=== PATIENT | female | born 1945 | race Caucasian/White ===

== ENCOUNTER 2017-11-16 15:42 | Inpatient (IN) | payer MEDICARE, OTHER ==
[~2017-11-16] VITALS: Ht 172.7 cm; Wt 56.4 kg
[2017-11-16 17:49] LABS: Red Cell Distribution Width 15.9 % (11.8-14.3)
[2017-11-16] MEDS ORDERED: AZITHROMYCIN 500MG/ 250ML 250 ML IV ONE (18:00)
[2017-11-16] MEDS ORDERED: cefTRIAXone 1GM/10ml IVPUSH 10 ML IV ONE (18:00)
[2017-11-16 18:04] LABS: White Blood Cell 25.8 10^3/uL (4.4-10.8)
[2017-11-16 18:05] LABS: Hematocrit 36.5 % (36.0-46.0); Hemoglobin 13.4 g/dL (12.2-16.2); Mean Corpuscular Hgb Conc. 36.8 g/dL (32.0-36.0); Mean Corpuscular Volume 106.1 fL (80.0-100.0); Platelet Count (auto) 277 10^3/uL (140-450); Red Blood Cells 3.44 10^6/uL (4.0-5.20)
[2017-11-16 18:06] LABS: Basophils % (manual) 0 (0.0-2.0); Blast Cells 0; Eosinophils % (manual) 0 (0-7); Metamyelocytes % 0; Myelocytes % 0; Promyelocytes % 0; Reactive Lymphocytes 0
[2017-11-16 18:23] LABS: BUN/Creatinine Ratio 57.6; Bilirubin, Total 1.7 mg/dL (0.2-1.0); Calcium 8.7 mg/dL (8.5-10.1); Potassium 4.6 mmol/L (3.5-5.1); Total Protein 7.8 g/dL (6.4-8.2)
[2017-11-16] MEDS ORDERED: SODIUM CHLORIDE 0.9% 1,000 ML IV ONE ×4 (18:31→21:15)
[2017-11-16 18:36] LABS: Albumin 2.2 g/dL (3.4-5.0)
[2017-11-16 19:10] LABS: Urine Bacteria FEW /hpf (None Seen); Urine Blood TRACE /uL (Negative); Urine Specific Gravity 1.025 (1.001-1.035); Urine WBC 1 /hpf (0 - 5)
[2017-11-16 19:12] LABS: Lactic Acid w/Reflex 3.4 mmol/L (0.4-2.0)
[2017-11-16 19:33] LABS: Band Neutrophils % (manual) 8; Lymphocytes % (manual) 2 (10.0-50.0); Monocytes % (manual) 7 (0-12)
[2017-11-16] MEDS ORDERED: MORPHINE SULFATE 4 MG/ML SYR/VIAL IV ONE (20:30)
[2017-11-16] MEDS ORDERED: ONDANSETRON HCL 4 MG/2 ML VIAL IV ONE (20:30)
[2017-11-16] MEDS ORDERED: MORPHINE SULFATE INJECTION 1 ML ONE (20:54)
[2017-11-16] MEDS ORDERED: METOPROLOL TARTRATE 25 MG TAB PO ONE (21:15)
[2017-11-16] MEDS ORDERED: VANCOMYCIN PER PHARMACY 0 MG IV SCH (22:00)
[2017-11-16] MEDS ORDERED: ONDANSETRON HCL 4 MG/2 ML VIAL IV PRN (22:15)
[2017-11-16] MEDS ORDERED: AMIODARONE HCL 150 MG in D5W 5% 100 ML IV ONE (22:15)
[2017-11-16] MEDS ORDERED: VANCOMYCIN 1GM/250ML 250 ML IV ONE (22:15)
[2017-11-16] MEDS ORDERED: ACETAMINOPHEN 500 MG TAB PO PRN (22:15)
[2017-11-16] MEDS ORDERED: AMIODARONE HCL 900 MG in DEXTROSE 500 ML IV SCH (22:16)
[2017-11-16] MEDS ORDERED: AMIODARONE HCL (50 MG/ ML) 3 ML VIAL IV ONE ×5 (22:27→22:33)
[2017-11-17] MEDS ORDERED: FUROSEMIDE 20 MG/2 ML VIAL IV ONE (00:15)
[2017-11-17] MEDS: HYDROcodone-ACET 5/325MG TAB PO PRN ×4 (01:01→20:02)
[2017-11-17] MEDS ORDERED: DIGOXIN (250MCG/ML) 2 ML AMPULE IV ONE (01:30)
[2017-11-17] MEDS ORDERED: LORazepam 2MG/ML-1ML VIAL IV PRN (01:45)
[2017-11-17] MEDS: AMIODARONE HCL 900 MG in DEXTROSE 500 ML IV SCH (04:19)
[2017-11-17] MEDS ORDERED: traMADol HCL 50 MG TAB PO ONE (04:30)
[2017-11-17] MEDS: PIPERACILLIN-TAZOB 3.375GM 50 ML IV SCH ×5 (06:20→23:01)
[2017-11-17 06:25] LABS: Basophils # (auto) 0 uL; Basophils % (auto) 0.1 % (0.0-2.0); Eosinophils # (auto) 0 uL; Eosinophils % (auto) 0.1 % (0.0-7.0); Hematocrit 35.5 % (36.0-46.0); Hemoglobin 11.8 g/dL (12.2-16.2); Lymphocytes # (auto) 0.5 uL; Lymphocytes % (auto) 1.6 % (10.0-50.0); Mean Corpuscular Hemoglobin 32.8 pg (28.0-32.0); Mean Corpuscular Hgb Conc. 33.3 g/dL (32.0-36.0); Mean Corpuscular Volume 98.4 fL (80.0-100.0); Monocytes # (auto) 0.9 uL; Monocytes % (auto) 3.2 % (0.0-12.0); Neutrophils # (auto) 27.7 uL; Platelet Count (auto) 246 10^3/uL (140-450); Red Blood Cells 3.61 10^6/uL (4.0-5.20); Red Cell Distribution Width 15.5 % (11.8-14.3); White Blood Cell 29.1 10^3/uL (4.4-10.8)
[2017-11-17 06:50] LABS: Albumin 1.8 g/dL (3.4-5.0); BUN/Creatinine Ratio 52.7; Bilirubin, Total 1.4 mg/dL (0.2-1.0); Calcium 8.4 mg/dL (8.5-10.1); Magnesium 2.3 mg/dL (1.6-2.6); Phosphorus 2.8 mg/dL (2.5-4.90); Potassium 4.1 mmol/L (3.5-5.1); Pre Albumin 3.2 mg/dL (20.0-40.0)
[2017-11-17] MEDS ORDERED: ENOXAPARIN SOD 40 MG/0.4 ML SYRINGE SC ONE (10:30)
[2017-11-17] MEDS ORDERED: AZITHROMYCIN 500MG/ 250ML 250 ML IV ONE (10:30)
[2017-11-17] MEDS: CARVEDILOL 3.125 MG TAB PO ONE ×2 (10:39→11:05)
[2017-11-17 10:51] LABS: INR 0.95 (0.9-1.15); Partial Thromboplastin Time 29.3 sec (22.64-33.71); Prothrombin Time 10.4 sec (9.37-12.3)
[2017-11-17 11:30] VITALS: BP 112/77
[2017-11-17] MEDS ORDERED: ZOLPIDEM TARTRATE 5 MG TAB PO PRN (11:45)
[2017-11-17] MEDS: BOOST 8 ounces PO SCH ×4 (12:00→22:15)
[2017-11-17] MEDS: VANCOMYCIN 500 MG in D5W 5% 100 ML IV SCH (12:51)
[2017-11-17] MEDS ORDERED: TRAM50TA2 PO (15:32)
[2017-11-17] MEDS ORDERED: ESTR1TAB3 IM (15:32)
[2017-11-17] MEDS ORDERED: HYDR-4683 PO (15:32)
[2017-11-17] MEDS ORDERED: FLEET ENEMA(ADULT) 135 ML PR PRN (15:45)
[2017-11-17 16:00] VITALS: BP 117/66
[2017-11-17] MEDS: traMADol HCL 50 MG TAB PO PRN (17:25)
[2017-11-17] MEDS: LORazepam 2MG/ML-1ML VIAL IV PRN (20:02)
[2017-11-17] MEDS: CARVEDILOL 3.125 MG TAB PO SCH (22:00)
[2017-11-17] MEDS: ENOXAPARIN SOD 40 MG/0.4 ML SYRINGE SC SCH (22:15)
[2017-11-18] MEDS: VANCOMYCIN 500 MG in D5W 5% 100 ML IV SCH ×2 (00:06→12:45)
[2017-11-18] MEDS: HYDROcodone-ACET 5/325MG TAB PO PRN ×5 (00:34→15:10)
[2017-11-18] MEDS: AMIODARONE HCL 900 MG in DEXTROSE 500 ML IV SCH (04:19)
[2017-11-18 05:42] LABS: Eosinophils # (auto) 0 uL; Hemoglobin 12.3 g/dL (12.2-16.2); Mean Corpuscular Hgb Conc. 32.9 g/dL (32.0-36.0); Monocytes # (auto) 0.3 uL; Monocytes % (auto) 0.8 % (0.0-12.0)
[2017-11-18 05:45] LABS: Basophils # (auto) 0 uL; Basophils % (auto) 0.1 % (0.0-2.0); Hematocrit 37.3 % (36.0-46.0); Lymphocytes # (auto) 0.8 uL; Lymphocytes % (auto) 2.6 % (10.0-50.0); Mean Corpuscular Hemoglobin 31.5 pg (28.0-32.0); Mean Corpuscular Volume 95.5 fL (80.0-100.0); Neutrophils # (auto) 30.9 uL; Neutrophils % (auto) 96.5 % (37.0-80.0); Platelet Count (auto) 267 10^3/uL (140-450); Red Cell Distribution Width 15.3 % (11.8-14.3)
[2017-11-18] MEDS: PIPERACILLIN-TAZOB 3.375GM 50 ML IV SCH ×3 (05:57→18:00)
[2017-11-18] MEDS: BOOST 8 ounces PO SCH ×3 (06:08→18:11)
[2017-11-18 06:10] LABS: Albumin 1.4 g/dL (3.4-5.0); Calcium 8.2 mg/dL (8.5-10.1); Potassium 4.1 mmol/L (3.5-5.1); Total Protein 6.1 g/dL (6.4-8.2)
[2017-11-18] MEDS: traMADol HCL 50 MG TAB PO PRN ×3 (08:29→18:00)
[2017-11-18] MEDS ORDERED: AZITHROMYCIN 500MG/ 250ML 250 ML IV SCH (10:00)
[2017-11-18] MEDS: CARVEDILOL 3.125 MG TAB PO SCH (11:14)
[2017-11-18] MEDS: ENOXAPARIN SOD 40 MG/0.4 ML SYRINGE SC SCH (11:14)
[2017-11-18] MEDS: LORazepam 2MG/ML-1ML VIAL IV PRN (12:11)
[2017-11-18] MEDS ORDERED: SOTALOL HCL 80 MG TAB PO ONE (14:30)
[2017-11-18] MEDS ORDERED: PANTOPRAZOLE 40 MG TAB PO ONE (16:15)
[2017-11-18] MEDS: guaiFENesin 200 MG/10 ML UD PO SCH (18:01)
[2017-11-19] MEDS: SOTALOL HCL 80 MG TAB PO SCH ×3 (00:24→22:10)
[2017-11-19] MEDS: BOOST 8 ounces PO SCH ×5 (00:27→22:18)
[2017-11-19] MEDS: ENOXAPARIN SOD 40 MG/0.4 ML SYRINGE SC SCH ×3 (00:27→22:09)
[2017-11-19] MEDS: VANCOMYCIN 500 MG in D5W 5% 100 ML IV SCH ×3 (00:29→23:59)
[2017-11-19] MEDS: LORazepam 2MG/ML-1ML VIAL IV PRN (01:12)
[2017-11-19] MEDS: guaiFENesin 200 MG/10 ML UD PO SCH ×4 (01:21→18:00)
[2017-11-19 03:40] VITALS: BP 121/68
[2017-11-19] MEDS: PIPERACILLIN-TAZOB 3.375GM 50 ML IV SCH ×4 (04:06→18:00)
[2017-11-19] MEDS: traMADol HCL 50 MG TAB PO PRN ×4 (04:08→22:09)
[2017-11-19 05:18] LABS: Hematocrit 33.9 % (36.0-46.0); Red Cell Distribution Width 15.7 % (11.8-14.3)
[2017-11-19 05:20] LABS: Hemoglobin 12.1 g/dL (12.2-16.2); Mean Corpuscular Hemoglobin 37.7 pg (28.0-32.0); Mean Corpuscular Hgb Conc. 35.8 g/dL (32.0-36.0); Mean Corpuscular Volume 105.3 fL (80.0-100.0); Platelet Count (auto) 292 10^3/uL (140-450); Red Blood Cells 3.22 10^6/uL (4.0-5.20)
[2017-11-19 05:31] LABS: Blast Cells 0; Myelocytes % 0; Reactive Lymphocytes 0
[2017-11-19 05:33] LABS: BUN/Creatinine Ratio 51.1; Potassium 4.3 mmol/L (3.5-5.1)
[2017-11-19] MEDS: HYDROcodone-ACET 5/325MG TAB PO PRN ×4 (05:43→22:09)
[2017-11-19 08:00] VITALS: BP 139/73
[2017-11-19] MEDS: PANTOPRAZOLE 40 MG TAB PO SCH (09:38)
[2017-11-19] MEDS ORDERED: PPN PER PHARMACY 0 ML IV SCH (11:00)
[2017-11-19 11:19] LABS: Magnesium 2.4 mg/dL (1.6-2.6); Phosphorus 2.2 mg/dL (2.5-4.90)
[2017-11-19 11:20] LABS: Folate (Folic Acid) 7.2 ng/mL (5.38-24)
[2017-11-19 11:22] LABS: Pre Albumin 5.8 mg/dL (20.0-40.0)
[2017-11-19 12:00] VITALS: BP 146/82
[2017-11-19 12:00] LABS: Lymphocytes % (manual) 2 (10.0-50.0); Monocytes % (manual) 2 (0-12)
[2017-11-19 12:01] LABS: Metamyelocytes % 2
[2017-11-19] MEDS ORDERED: SODIUM PHOSP 20MEQ(15MMOL) IN NS 100 ML IV ONE (12:45)
[2017-11-19] MEDS ORDERED: DEXTROSE (50%) 50ML SYRG IV SCH (12:45)
[2017-11-19 12:52] LABS: Band Neutrophils % (manual) 0; Basophils % (manual) 0 (0.0-2.0); Eosinophils % (manual) 0 (0-7); Promyelocytes % 0
[2017-11-19] MEDS ORDERED: HYDROmorphone HCL 2 MG/ML VL ONE (14:04)
[2017-11-19] MEDS ORDERED: HYDROmorphone HCL 2 MG/ML VL IV ONE (14:15)
[2017-11-19] MEDS ORDERED: ATROPINE SULF 0.5 MG/5ML SYR ONE (15:00)
[2017-11-19] MEDS ORDERED: EPINEPHrine HCL 1 MG/10 ML SYRG ONE (15:00)
[2017-11-19] MEDS ORDERED: MIDAZOLAM HCL 1MG/1ML-2 ML VIAL ONE (15:40)
[2017-11-19] MEDS ORDERED: fentaNYL CITRATE 100 MCG/2 ML VL ONE (15:41)
[2017-11-19 16:00] VITALS: BP 123/64
[2017-11-19] MEDS: ACCU-CHEK COMFORT CURVE STRIP VI SCH (18:00)
[2017-11-19] MEDS: InsuLIN REG 1unit/0.01ml Soln (100units/ml) SC SCH (18:00)
[2017-11-19 19:50] VITALS: BP 131/71
[2017-11-19] MEDS ORDERED: PPN PER PHARMACY IV NR ×10 (20:00)
[2017-11-19] MEDS: ZOLPIDEM TARTRATE 5 MG TAB PO PRN (22:10)
[2017-11-20] VITALS (8 sets, daily range): BP systolic 125–151; BP diastolic 69–94
[2017-11-20] MEDS: InsuLIN REG 1unit/0.01ml Soln (100units/ml) SC SCH ×5 (00:26→23:44)
[2017-11-20] MEDS: ACCU-CHEK COMFORT CURVE STRIP VI SCH ×5 (00:26→23:44)
[2017-11-20] MEDS: guaiFENesin 200 MG/10 ML UD PO SCH ×5 (01:19→23:44)
[2017-11-20] MEDS: PIPERACILLIN-TAZOB 3.375GM 50 ML IV SCH ×3 (01:19→11:11)
[2017-11-20] MEDS: traMADol HCL 50 MG TAB PO PRN ×4 (03:19→20:39)
[2017-11-20] MEDS: HYDROcodone-ACET 5/325MG TAB PO PRN ×5 (03:19→23:44)
[2017-11-20] MEDS: LORazepam 2MG/ML-1ML VIAL IV PRN ×2 (04:49→20:59)
[2017-11-20] MEDS: BOOST 8 ounces PO SCH ×4 (06:00→21:59)
[2017-11-20] MEDS: SOTALOL HCL 80 MG TAB PO SCH ×2 (09:56→21:59)
[2017-11-20] MEDS: PANTOPRAZOLE 40 MG TAB PO SCH (09:56)
[2017-11-20] MEDS: ENOXAPARIN SOD 40 MG/0.4 ML SYRINGE SC SCH ×2 (09:56→21:59)
[2017-11-20 10:11] LABS: Albumin 1.4 g/dL (3.4-5.0); Bilirubin, Total 0.8 mg/dL (0.2-1.0); Calcium 7.7 mg/dL (8.5-10.1); Magnesium 2.4 mg/dL (1.6-2.6); Phosphorus 3.7 mg/dL (2.5-4.90); Potassium 3.9 mmol/L (3.5-5.1); Pre Albumin 7.9 mg/dL (20.0-40.0); Total Protein 6.7 g/dL (6.4-8.2)
[2017-11-20 10:31] LABS: Hematocrit 38.1 % (36.0-46.0); Hemoglobin 12.9 g/dL (12.2-16.2); Mean Corpuscular Hemoglobin 34.6 pg (28.0-32.0); Platelet Count (auto) 330 10^3/uL (140-450); Red Blood Cells 3.74 10^6/uL (4.0-5.20); Red Cell Distribution Width 15.7 % (11.8-14.3); White Blood Cell 28.3 10^3/uL (4.4-10.8)
[2017-11-20 10:34] LABS: Basophils % (manual) 0 (0.0-2.0); Blast Cells 0; Metamyelocytes % 0; Myelocytes % 0; Promyelocytes % 0; Reactive Lymphocytes 0
[2017-11-20] MEDS: LINEZOLID 600MG/300ML 300 ML IV SCH ×2 (13:00→21:57)
[2017-11-20 14:25] LABS: Band Neutrophils % (manual) 4; Eosinophils % (manual) 1 (0-7); Lymphocytes % (manual) 3 (10.0-50.0); Monocytes % (manual) 5 (0-12)
[2017-11-20] MEDS ORDERED: PPN PER PHARMACY IV NR ×9 (20:00)
[2017-11-21] VITALS (7 sets, daily range): BP systolic 140–159; BP diastolic 75–94
[2017-11-21] MEDS: traMADol HCL 50 MG TAB PO PRN ×5 (01:45→19:51)
[2017-11-21] MEDS: HYDROcodone-ACET 5/325MG TAB PO PRN ×4 (04:32→17:30)
[2017-11-21] MEDS: InsuLIN REG 1unit/0.01ml Soln (100units/ml) SC SCH ×3 (06:00→18:00)
[2017-11-21 06:06] LABS: Hematocrit 35.4 % (36.0-46.0); Hemoglobin 11.5 g/dL (12.2-16.2); Mean Corpuscular Hemoglobin 30.4 pg (28.0-32.0); Mean Corpuscular Hgb Conc. 32.4 g/dL (32.0-36.0); Mean Corpuscular Volume 93.7 fL (80.0-100.0); Platelet Count (auto) 338 10^3/uL (140-450); Red Blood Cells 3.77 10^6/uL (4.0-5.20); Red Cell Distribution Width 14.8 % (11.8-14.3); White Blood Cell 21.7 10^3/uL (4.4-10.8)
[2017-11-21] MEDS: guaiFENesin 200 MG/10 ML UD PO SCH ×3 (06:17→18:09)
[2017-11-21] MEDS: ACCU-CHEK COMFORT CURVE STRIP VI SCH ×3 (06:18→18:09)
[2017-11-21] MEDS: LORazepam 2MG/ML-1ML VIAL IV PRN ×2 (06:18→15:30)
[2017-11-21] MEDS: BOOST 8 ounces PO SCH ×4 (06:19→22:04)
[2017-11-21 06:22] LABS: Basophils % (manual) 0 (0.0-2.0); Blast Cells 0; Eosinophils % (manual) 0 (0-7); Metamyelocytes % 0; Myelocytes % 0; Promyelocytes % 0; Reactive Lymphocytes 0
[2017-11-21 06:30] LABS: Albumin 1.3 g/dL (3.4-5.0); BUN/Creatinine Ratio 40.5; Bilirubin, Total 0.4 mg/dL (0.2-1.0); Calcium 7.6 mg/dL (8.5-10.1); Magnesium 2.1 mg/dL (1.6-2.6); Phosphorus 2.6 mg/dL (2.5-4.90); Potassium 3.8 mmol/L (3.5-5.1); Total Protein 6.4 g/dL (6.4-8.2)
[2017-11-21 06:55] LABS: Band Neutrophils % (manual) 1; Lymphocytes % (manual) 4 (10.0-50.0); Monocytes % (manual) 3 (0-12)
[2017-11-21] MEDS: cefTRIAXone 1GM/10ml IVPUSH 10 ML IV SCH (08:49)
[2017-11-21] MEDS: LINEZOLID 600MG/300ML 300 ML IV SCH ×2 (09:43→22:03)
[2017-11-21] MEDS: SOTALOL HCL 80 MG TAB PO SCH ×2 (09:44→22:04)
[2017-11-21] MEDS: PANTOPRAZOLE 40 MG TAB PO SCH (09:44)
[2017-11-21] MEDS: ENOXAPARIN SOD 40 MG/0.4 ML SYRINGE SC SCH ×2 (09:45→22:04)
[2017-11-21] MEDS ORDERED: ASPirin 81 mg TAB PO ONE (13:00)
[2017-11-21] MEDS ORDERED: PPN PER PHARMACY IV NR ×11 (20:00)
[2017-11-21] MEDS: ZOLPIDEM TARTRATE 5 MG TAB PO PRN (20:57)
[2017-11-22] VITALS (7 sets, daily range): BP systolic 132–161; BP diastolic 65–96
[2017-11-22] MEDS: ACCU-CHEK COMFORT CURVE STRIP VI SCH ×5 (00:02→23:57)
[2017-11-22] MEDS: guaiFENesin 200 MG/10 ML UD PO SCH ×5 (00:02→23:57)
[2017-11-22] MEDS: HYDROcodone-ACET 5/325MG TAB PO PRN ×5 (00:03→23:57)
[2017-11-22] MEDS: LORazepam 2MG/ML-1ML VIAL IV PRN ×3 (02:24→21:17)
[2017-11-22] MEDS: traMADol HCL 50 MG TAB PO PRN ×4 (05:08→21:08)
[2017-11-22] MEDS: BOOST 8 ounces PO SCH ×4 (06:00→21:18)
[2017-11-22] MEDS: InsuLIN REG 1unit/0.01ml Soln (100units/ml) SC SCH ×5 (06:00→23:57)
[2017-11-22 06:42] LABS: Albumin 1.4 g/dL (3.4-5.0); BUN/Creatinine Ratio 28.9; Bilirubin, Total 0.6 mg/dL (0.2-1.0); Calcium 7.7 mg/dL (8.5-10.1); Magnesium 2.1 mg/dL (1.6-2.6); Phosphorus 2.5 mg/dL (2.5-4.90); Potassium 3.6 mmol/L (3.5-5.1); Total Protein 7.2 g/dL (6.4-8.2)
[2017-11-22 07:43] LABS: Hematocrit 34.9 % (36.0-46.0); Hemoglobin 11.8 g/dL (12.2-16.2); Mean Corpuscular Hgb Conc. 33.8 g/dL (32.0-36.0); Mean Corpuscular Volume 91.7 fL (80.0-100.0); Platelet Count (auto) 407 10^3/uL (140-450); Red Blood Cells 3.81 10^6/uL (4.0-5.20); Red Cell Distribution Width 14.8 % (11.8-14.3); White Blood Cell 22.6 10^3/uL (4.4-10.8)
[2017-11-22 07:48] LABS: Basophils % (manual) 0 (0.0-2.0); Blast Cells 0; Metamyelocytes % 0; Myelocytes % 0; Promyelocytes % 0; Reactive Lymphocytes 0
[2017-11-22] MEDS: cefTRIAXone 1GM/10ml IVPUSH 10 ML IV SCH (08:26)
[2017-11-22 08:31] LABS: Band Neutrophils % (manual) 4; Eosinophils % (manual) 1 (0-7); Lymphocytes % (manual) 2 (10.0-50.0); Monocytes % (manual) 3 (0-12)
[2017-11-22] MEDS: SOTALOL HCL 80 MG TAB PO SCH ×2 (10:30→21:07)
[2017-11-22] MEDS: ASPirin 81 mg TAB PO SCH (10:31)
[2017-11-22] MEDS: PANTOPRAZOLE 40 MG TAB PO SCH (10:32)
[2017-11-22] MEDS: ENOXAPARIN SOD 40 MG/0.4 ML SYRINGE SC SCH ×2 (10:32→21:04)
[2017-11-22] MEDS: LINEZOLID 600MG/300ML 300 ML IV SCH ×2 (10:33→21:44)
[2017-11-22] MEDS ORDERED: PPN PER PHARMACY IV NR ×12 (20:00)
[2017-11-23] VITALS (8 sets, daily range): BP systolic 133–163; BP diastolic 52–99
[2017-11-23] MEDS: traMADol HCL 50 MG TAB PO PRN ×5 (01:01→20:22)
[2017-11-23] MEDS: ZOLPIDEM TARTRATE 5 MG TAB PO PRN ×2 (01:25→23:28)
[2017-11-23] MEDS ORDERED: ALBUTEROL SULF 2.5 MG/0.5ML(0.5%) NEB SOLN NEB ONE (02:45)
[2017-11-23] MEDS ORDERED: IPRATROPIUM BROM 0.5 MG/2.5ML INH SOL NEB ONE (02:45)
[2017-11-23] MEDS ORDERED: LORazepam 2MG/ML-1ML VIAL IV ONE (02:45)
[2017-11-23 05:49] LABS: Basophils # (auto) 0 uL; Basophils % (auto) 0.1 % (0.0-2.0); Eosinophils # (auto) 0 uL; Eosinophils % (auto) 0.1 % (0.0-7.0); Hematocrit 30.8 % (36.0-46.0); Hemoglobin 10.3 g/dL (12.2-16.2); Lymphocytes # (auto) 0.7 uL; Lymphocytes % (auto) 3.4 % (10.0-50.0); Mean Corpuscular Hemoglobin 30.9 pg (28.0-32.0); Mean Corpuscular Hgb Conc. 33.4 g/dL (32.0-36.0); Mean Corpuscular Volume 92.5 fL (80.0-100.0); Monocytes # (auto) 0.8 uL; Monocytes % (auto) 3.8 % (0.0-12.0); Neutrophils % (auto) 92.6 % (37.0-80.0); Platelet Count (auto) 314 10^3/uL (140-450); Red Blood Cells 3.33 10^6/uL (4.0-5.20); Red Cell Distribution Width 14.5 % (11.8-14.3); White Blood Cell 20.5 10^3/uL (4.4-10.8)
[2017-11-23] MEDS: ACCU-CHEK COMFORT CURVE STRIP VI SCH ×4 (06:00→23:28)
[2017-11-23] MEDS: InsuLIN REG 1unit/0.01ml Soln (100units/ml) SC SCH ×4 (06:00→23:27)
[2017-11-23] MEDS: BOOST 8 ounces PO SCH ×4 (06:00→21:44)
[2017-11-23] MEDS: guaiFENesin 200 MG/10 ML UD PO SCH ×4 (06:00→23:27)
[2017-11-23 06:17] LABS: Albumin 1.2 g/dL (3.4-5.0); BUN/Creatinine Ratio 32.4; Bilirubin, Total 0.5 mg/dL (0.2-1.0); Calcium 7.4 mg/dL (8.5-10.1); Magnesium 2.2 mg/dL (1.6-2.6); Phosphorus 3.4 mg/dL (2.5-4.90); Total Protein 6.5 g/dL (6.4-8.2)
[2017-11-23] MEDS: ALBUTEROL SULF 2.5 MG/0.5ML(0.5%) NEB SOLN NEB PRN ×3 (06:52→19:36)
[2017-11-23] MEDS: IPRATROPIUM BROM 0.5 MG/2.5ML INH SOL NEB PRN ×3 (06:52→19:36)
[2017-11-23] MEDS: HYDROcodone-ACET 5/325MG TAB PO PRN ×4 (07:11→22:08)
[2017-11-23] MEDS: LORazepam 2MG/ML-1ML VIAL IV PRN ×2 (08:39→14:22)
[2017-11-23] MEDS: PANTOPRAZOLE 40 MG TAB PO SCH (09:49)
[2017-11-23] MEDS: SOTALOL HCL 80 MG TAB PO SCH ×2 (09:49→21:43)
[2017-11-23] MEDS: LINEZOLID 600MG/300ML 300 ML IV SCH ×2 (09:49→21:41)
[2017-11-23] MEDS: ASPirin 81 mg TAB PO SCH (09:49)
[2017-11-23] MEDS: cefTRIAXone 1GM/10ml IVPUSH 10 ML IV SCH (09:50)
[2017-11-23] MEDS: ENOXAPARIN SOD 40 MG/0.4 ML SYRINGE SC SCH ×2 (09:50→21:43)
[2017-11-23] MEDS ORDERED: metroNIDAZOLE 500 MG TAB PO ONE (12:00)
[2017-11-23] MEDS: FLORASTOR (S. BOULARDII) 250 MG CAP PO SCH (12:07)
[2017-11-23] MEDS ORDERED: PPN PER PHARMACY IV NR ×12 (20:00)
[2017-11-23] MEDS: metroNIDAZOLE 500 MG TAB PO SCH (21:42)
[2017-11-24] MEDS: traMADol HCL 50 MG TAB PO PRN ×4 (01:11→17:43)
[2017-11-24] MEDS: HYDROcodone-ACET 5/325MG TAB PO PRN ×4 (03:02→21:32)
[2017-11-24 04:56] VITALS: BP 151/83
[2017-11-24] MEDS: InsuLIN REG 1unit/0.01ml Soln (100units/ml) SC SCH ×4 (05:09→23:47)
[2017-11-24] MEDS: ACCU-CHEK COMFORT CURVE STRIP VI SCH ×4 (05:10→23:48)
[2017-11-24] MEDS: metroNIDAZOLE 500 MG TAB PO SCH ×3 (05:35→21:32)
[2017-11-24] MEDS: BOOST 8 ounces PO SCH ×4 (05:35→21:32)
[2017-11-24] MEDS: guaiFENesin 200 MG/10 ML UD PO SCH ×4 (05:35→23:42)
[2017-11-24] MEDS: IPRATROPIUM BROM 0.5 MG/2.5ML INH SOL NEB PRN ×3 (07:00→20:47)
[2017-11-24] MEDS: ALBUTEROL SULF 2.5 MG/0.5ML(0.5%) NEB SOLN NEB PRN ×3 (07:00→20:47)
[2017-11-24 07:21] LABS: Albumin 1.4 g/dL (3.4-5.0); BUN/Creatinine Ratio 35.3; Bilirubin, Total 0.3 mg/dL (0.2-1.0); Calcium 7.8 mg/dL (8.5-10.1); Magnesium 2.5 mg/dL (1.6-2.6); Phosphorus 3.4 mg/dL (2.5-4.90); Potassium 4.3 mmol/L (3.5-5.1); Pre Albumin 12.8 mg/dL (20.0-40.0); Total Protein 7.3 g/dL (6.4-8.2)
[2017-11-24 07:37] LABS: Basophils # (auto) 0 uL; Basophils % (auto) 0.2 % (0.0-2.0); Eosinophils # (auto) 0.1 uL; Eosinophils % (auto) 0.3 % (0.0-7.0); Hematocrit 33.2 % (36.0-46.0); Hemoglobin 10.9 g/dL (12.2-16.2); Lymphocytes # (auto) 0.7 uL; Lymphocytes % (auto) 3.6 % (10.0-50.0); Mean Corpuscular Hemoglobin 30.7 pg (28.0-32.0); Mean Corpuscular Hgb Conc. 32.9 g/dL (32.0-36.0); Mean Corpuscular Volume 93.3 fL (80.0-100.0); Monocytes # (auto) 0.7 uL; Monocytes % (auto) 3.8 % (0.0-12.0); Neutrophils # (auto) 17.5 uL; Neutrophils % (auto) 92.1 % (37.0-80.0); Nucleated Red Blood Cells % 0.1 %; Platelet Count (auto) 412 10^3/uL (140-450); Red Blood Cells 3.56 10^6/uL (4.0-5.20); Red Cell Distribution Width 14.8 % (11.8-14.3)
[2017-11-24 08:00] VITALS: BP 168/98
[2017-11-24 08:30] VITALS: BP 168/98
[2017-11-24] MEDS: LORazepam 2MG/ML-1ML VIAL IV PRN ×2 (09:00→17:44)
[2017-11-24] MEDS: FLORASTOR (S. BOULARDII) 250 MG CAP PO SCH (09:40)
[2017-11-24] MEDS: ASPirin 81 mg TAB PO SCH (09:40)
[2017-11-24] MEDS: LINEZOLID 600MG/300ML 300 ML IV SCH ×2 (09:41→21:31)
[2017-11-24] MEDS: cefTRIAXone 1GM/10ml IVPUSH 10 ML IV SCH (09:41)
[2017-11-24] MEDS: ENOXAPARIN SOD 40 MG/0.4 ML SYRINGE SC SCH ×2 (09:42→21:32)
[2017-11-24] MEDS: PANTOPRAZOLE 40 MG TAB PO SCH (09:42)
[2017-11-24] MEDS: SOTALOL HCL 80 MG TAB PO SCH ×2 (09:42→21:31)
[2017-11-24 13:00] VITALS: BP 158/85
[2017-11-24] MEDS ORDERED: MEPERIDINE HCL (25 MG/ML) 1ML VIAL IM ONE (16:00)
[2017-11-24] MEDS ORDERED: LIDOCAINE HCL 2 % INJ 2ML MPF NEB ONE (16:00)
[2017-11-24 16:32] VITALS: BP 146/85
[2017-11-24] MEDS ORDERED: PPN PER PHARMACY IV NR ×12 (20:00)
[2017-11-24] MEDS ORDERED: TPN PER PHARMACY IV NR ×12 (20:00)
[2017-11-24] MEDS: ZOLPIDEM TARTRATE 5 MG TAB PO PRN (21:33)
[2017-11-24 22:00] VITALS: BP 162/88
[2017-11-25] MEDS: traMADol HCL 50 MG TAB PO PRN (02:35)
[2017-11-25 05:00] VITALS: BP 149/83
[2017-11-25] MEDS: InsuLIN REG 1unit/0.01ml Soln (100units/ml) SC SCH ×3 (05:28→17:38)
[2017-11-25] MEDS: ACCU-CHEK COMFORT CURVE STRIP VI SCH ×3 (05:29→17:38)
[2017-11-25] MEDS: HYDROcodone-ACET 5/325MG TAB PO PRN ×4 (05:39→20:52)
[2017-11-25] MEDS: BOOST 8 ounces PO SCH ×3 (05:39→20:53)
[2017-11-25] MEDS: guaiFENesin 200 MG/10 ML UD PO SCH ×2 (05:40→12:00)
[2017-11-25] MEDS: metroNIDAZOLE 500 MG TAB PO SCH ×3 (05:40→22:08)
[2017-11-25 07:42] LABS: BUN/Creatinine Ratio 36.1; Calcium 7.7 mg/dL (8.5-10.1); Potassium 4.9 mmol/L (3.5-5.1)
[2017-11-25 08:14] LABS: Basophils # (auto) 0 uL; Basophils % (auto) 0.2 % (0.0-2.0); Eosinophils # (auto) 0 uL; Eosinophils % (auto) 0.1 % (0.0-7.0); Hematocrit 32.2 % (36.0-46.0); Hemoglobin 10.5 g/dL (12.2-16.2); Lymphocytes # (auto) 0.6 uL; Lymphocytes % (auto) 3.9 % (10.0-50.0); Mean Corpuscular Hemoglobin 30.5 pg (28.0-32.0); Mean Corpuscular Hgb Conc. 32.7 g/dL (32.0-36.0); Mean Corpuscular Volume 93.2 fL (80.0-100.0); Monocytes # (auto) 0.7 uL; Monocytes % (auto) 4.3 % (0.0-12.0); Neutrophils # (auto) 14.8 uL; Neutrophils % (auto) 91.5 % (37.0-80.0); Nucleated Red Blood Cells % 0.1 %; Platelet Count (auto) 409 10^3/uL (140-450); Red Blood Cells 3.46 10^6/uL (4.0-5.20); White Blood Cell 16.2 10^3/uL (4.4-10.8)
[2017-11-25] MEDS ORDERED: EPINEPHrine HCL 1 MG/1 ML AMP ONE (08:18)
[2017-11-25] MEDS ORDERED: LIDOCAINE 2%HCL (LOCAL ANESTH.) INJ 20ML MDV ONE (08:18)
[2017-11-25] MEDS ORDERED: SODIUM CHLORIDE LOCK 30 ML ONE (08:18)
[2017-11-25] MEDS ORDERED: LIDOCAINE HCL 2% TOP JELLY 5ML TOP ONE (08:19)
[2017-11-25] MEDS: cefTRIAXone 1GM/10ml IVPUSH 10 ML IV SCH (08:53)
[2017-11-25] MEDS: FLORASTOR (S. BOULARDII) 250 MG CAP PO SCH (08:53)
[2017-11-25] MEDS: LINEZOLID 600MG/300ML 300 ML IV SCH ×2 (08:53→22:09)
[2017-11-25] MEDS: PANTOPRAZOLE 40 MG TAB PO SCH (08:53)
[2017-11-25 08:55] VITALS: BP 162/90
[2017-11-25 09:31] LABS: Albumin 1.4 g/dL (3.4-5.0); Magnesium 2.3 mg/dL (1.6-2.6); Phosphorus 3.2 mg/dL (2.5-4.90)
[2017-11-25] MEDS: SOTALOL HCL 80 MG TAB PO SCH ×2 (10:00→22:08)
[2017-11-25] MEDS: ASPirin 81 mg TAB PO SCH (10:00)
[2017-11-25] MEDS: ENOXAPARIN SOD 40 MG/0.4 ML SYRINGE SC SCH ×2 (10:00→22:09)
[2017-11-25] MEDS: MIDAZOLAM HCL 5 MG/ML-1ML VIAL ONE ×2 (13:21→13:27)
[2017-11-25] MEDS: LORazepam 2MG/ML-1ML VIAL IV PRN (15:29)
[2017-11-25 16:28] VITALS: BP 126/72
[2017-11-25] MEDS ORDERED: PPN PER PHARMACY IV NR ×12 (20:00)
[2017-11-25 20:31] VITALS: BP 126/72
[2017-11-25 22:00] VITALS: BP 138/77
[2017-11-25] MEDS: ZOLPIDEM TARTRATE 5 MG TAB PO PRN (22:08)
[2017-11-26] MEDS: ACCU-CHEK COMFORT CURVE STRIP VI SCH ×2 (01:00→05:45)
[2017-11-26] MEDS: InsuLIN REG 1unit/0.01ml Soln (100units/ml) SC SCH ×2 (01:00→05:57)
[2017-11-26] MEDS: guaiFENesin 200 MG/10 ML UD PO SCH ×5 (01:05→23:51)
[2017-11-26] MEDS: HYDROcodone-ACET 5/325MG TAB PO PRN ×5 (01:05→20:39)
[2017-11-26] MEDS: LORazepam 2MG/ML-1ML VIAL IV PRN ×2 (02:53→14:13)
[2017-11-26 04:46] VITALS: BP 110/67
[2017-11-26] MEDS: BOOST 8 ounces PO SCH ×4 (05:43→22:00)
[2017-11-26] MEDS: metroNIDAZOLE 500 MG TAB PO SCH ×3 (05:44→21:42)
[2017-11-26 06:23] LABS: Basophils # (auto) 0 uL; Basophils % (auto) 0.3 % (0.0-2.0); Eosinophils # (auto) 0 uL; Hemoglobin 8.8 g/dL (12.2-16.2); Lymphocytes # (auto) 0.6 uL; Lymphocytes % (auto) 4.2 % (10.0-50.0); Mean Corpuscular Hemoglobin 32.1 pg (28.0-32.0); Mean Corpuscular Hgb Conc. 33.7 g/dL (32.0-36.0); Mean Corpuscular Volume 95.2 fL (80.0-100.0); Monocytes # (auto) 0.8 uL; Monocytes % (auto) 5.8 % (0.0-12.0); Neutrophils # (auto) 12.8 uL; Neutrophils % (auto) 89.7 % (37.0-80.0); Platelet Count (auto) 363 10^3/uL (140-450); Red Blood Cells 2.73 10^6/uL (4.0-5.20); White Blood Cell 14.3 10^3/uL (4.4-10.8)
[2017-11-26 06:47] LABS: Albumin 1.4 g/dL (3.4-5.0); Bilirubin, Total 0.4 mg/dL (0.2-1.0); Calcium 7.5 mg/dL (8.5-10.1); Magnesium 2.2 mg/dL (1.6-2.6); Phosphorus 3.5 mg/dL (2.5-4.90); Potassium 4.1 mmol/L (3.5-5.1); Total Protein 6.8 g/dL (6.4-8.2)
[2017-11-26 08:48] VITALS: BP 125/72
[2017-11-26] MEDS: ASPirin 81 mg TAB PO SCH (09:00)
[2017-11-26] MEDS: FLORASTOR (S. BOULARDII) 250 MG CAP PO SCH (09:00)
[2017-11-26] MEDS: SOTALOL HCL 80 MG TAB PO SCH ×2 (09:01→21:42)
[2017-11-26] MEDS: PANTOPRAZOLE 40 MG TAB PO SCH (09:01)
[2017-11-26] MEDS: ENOXAPARIN SOD 40 MG/0.4 ML SYRINGE SC SCH (09:05)
[2017-11-26] MEDS: LINEZOLID 600MG/300ML 300 ML IV SCH ×2 (09:07→21:41)
[2017-11-26] MEDS: cefTRIAXone 1GM/10ml IVPUSH 10 ML IV SCH (09:07)
[2017-11-26 12:21] VITALS: BP 142/69
[2017-11-26] MEDS: ALBUTEROL SULF 2.5 MG/0.5ML(0.5%) NEB SOLN NEB PRN (13:10)
[2017-11-26] MEDS: IPRATROPIUM BROM 0.5 MG/2.5ML INH SOL NEB PRN (13:10)
[2017-11-26 17:04] VITALS: BP 138/70
[2017-11-26] MEDS: traMADol HCL 50 MG TAB PO PRN ×2 (18:10→23:48)
[2017-11-26] MEDS ORDERED: PPN PER PHARMACY IV NR ×12 (20:00)
[2017-11-26] MEDS: ZOLPIDEM TARTRATE 5 MG TAB PO PRN (21:48)
[2017-11-26 21:53] VITALS: BP 137/79
[2017-11-27] MEDS: LORazepam 2MG/ML-1ML VIAL IV PRN ×2 (00:28→20:20)
[2017-11-27] MEDS: HYDROcodone-ACET 5/325MG TAB PO PRN ×4 (01:40→17:38)
[2017-11-27 05:21] VITALS: BP 143/76
[2017-11-27] MEDS: metroNIDAZOLE 500 MG TAB PO SCH ×2 (06:13→13:01)
[2017-11-27] MEDS: traMADol HCL 50 MG TAB PO PRN ×3 (06:13→20:20)
[2017-11-27] MEDS: BOOST 8 ounces PO SCH ×4 (06:13→21:14)
[2017-11-27] MEDS: guaiFENesin 200 MG/10 ML UD PO SCH ×3 (06:13→17:39)
[2017-11-27 09:00] VITALS: BP 143/66
[2017-11-27] MEDS: IPRATROPIUM BROM 0.5 MG/2.5ML INH SOL NEB PRN ×2 (09:46→18:45)
[2017-11-27] MEDS: ALBUTEROL SULF 2.5 MG/0.5ML(0.5%) NEB SOLN NEB PRN ×2 (09:46→18:45)
[2017-11-27] MEDS: FLORASTOR (S. BOULARDII) 250 MG CAP PO SCH (10:28)
[2017-11-27] MEDS: PANTOPRAZOLE 40 MG TAB PO SCH (10:28)
[2017-11-27] MEDS: cefTRIAXone 1GM/10ml IVPUSH 10 ML IV SCH (10:28)
[2017-11-27] MEDS: LINEZOLID 600MG/300ML 300 ML IV SCH ×2 (10:28→22:03)
[2017-11-27] MEDS: ENOXAPARIN SOD 40 MG/0.4 ML SYRINGE SC SCH (10:29)
[2017-11-27] MEDS: ASPirin 81 mg TAB PO SCH (10:30)
[2017-11-27] MEDS: SOTALOL HCL 80 MG TAB PO SCH ×2 (10:30→22:03)
[2017-11-27 13:00] VITALS: BP 132/74
[2017-11-27 17:00] VITALS: BP 143/63
[2017-11-27 22:00] VITALS: BP 120/65
[2017-11-27] MEDS: ZOLPIDEM TARTRATE 5 MG TAB PO PRN (22:03)
[2017-11-28] VITALS (7 sets, daily range): BP systolic 114–155; BP diastolic 66–95
[2017-11-28] MEDS: ALBUTEROL SULF 2.5 MG/0.5ML(0.5%) NEB SOLN NEB PRN ×3 (02:52→17:19)
[2017-11-28] MEDS: IPRATROPIUM BROM 0.5 MG/2.5ML INH SOL NEB PRN ×3 (02:52→17:19)
[2017-11-28] MEDS: HYDROcodone-ACET 5/325MG TAB PO PRN ×4 (03:05→19:36)
[2017-11-28] MEDS: traMADol HCL 50 MG TAB PO PRN ×3 (05:05→17:04)
[2017-11-28] MEDS: guaiFENesin 200 MG/10 ML UD PO SCH ×5 (05:31→23:58)
[2017-11-28] MEDS: BOOST 8 ounces PO SCH ×4 (05:49→21:49)
[2017-11-28] MEDS: cefTRIAXone 1GM/10ml IVPUSH 10 ML IV SCH (09:00)
[2017-11-28] MEDS: ENOXAPARIN SOD 40 MG/0.4 ML SYRINGE SC SCH (10:00)
[2017-11-28] MEDS: PANTOPRAZOLE 40 MG TAB PO SCH (10:35)
[2017-11-28] MEDS: LINEZOLID 600MG/300ML 300 ML IV SCH (10:35)
[2017-11-28] MEDS: FLORASTOR (S. BOULARDII) 250 MG CAP PO SCH (10:35)
[2017-11-28] MEDS: ASPirin 81 mg TAB PO SCH (10:36)
[2017-11-28] MEDS: SOTALOL HCL 80 MG TAB PO SCH ×2 (10:37→21:56)
[2017-11-28] MEDS: LORazepam 2MG/ML-1ML VIAL IV PRN ×2 (11:24→19:44)
[2017-11-28] MEDS: NAFCILLIN SOD 2GM 6 GM in SODIUM CHL 0.9% 500 ML IV SCH (18:30)
[2017-11-28] MEDS: CHLORHEXIDINE 0.12% ORAL rinse 473ML MT SCH (21:56)
[2017-11-28] MEDS: ZOLPIDEM TARTRATE 5 MG TAB PO PRN (21:56)
[2017-11-29] MEDS: HYDROcodone-ACET 5/325MG TAB PO PRN ×5 (01:57→20:57)
[2017-11-29] MEDS: traMADol HCL 50 MG TAB PO PRN ×3 (03:11→18:21)
[2017-11-29] MEDS: IPRATROPIUM BROM 0.5 MG/2.5ML INH SOL NEB PRN ×4 (03:39→18:26)
[2017-11-29] MEDS: ALBUTEROL SULF 2.5 MG/0.5ML(0.5%) NEB SOLN NEB PRN ×4 (03:39→18:26)
[2017-11-29 05:00] VITALS: BP 142/78
[2017-11-29] MEDS: BOOST 8 ounces PO SCH ×4 (05:38→21:41)
[2017-11-29] MEDS: guaiFENesin 200 MG/10 ML UD PO SCH ×3 (05:48→17:58)
[2017-11-29] MEDS: NAFCILLIN SOD 2GM 6 GM in SODIUM CHL 0.9% 500 ML IV SCH ×2 (07:05→18:04)
[2017-11-29 07:44] LABS: Albumin 1.3 g/dL (3.4-5.0); BUN/Creatinine Ratio 29.5; Bilirubin, Total 0.4 mg/dL (0.2-1.0); Calcium 7.5 mg/dL (8.5-10.1); Potassium 4.1 mmol/L (3.5-5.1)
[2017-11-29 08:00] VITALS: BP 152/86
[2017-11-29 08:09] LABS: Basophils # (auto) 0 uL; Basophils % (auto) 0.3 % (0.0-2.0); Eosinophils # (auto) 0 uL; Hematocrit 29.1 % (36.0-46.0); Hemoglobin 9.5 g/dL (12.2-16.2); Lymphocytes # (auto) 0.7 uL; Lymphocytes % (auto) 5.4 % (10.0-50.0); Mean Corpuscular Hemoglobin 31.2 pg (28.0-32.0); Mean Corpuscular Hgb Conc. 32.7 g/dL (32.0-36.0); Mean Corpuscular Volume 95.3 fL (80.0-100.0); Monocytes # (auto) 0.7 uL; Monocytes % (auto) 5.9 % (0.0-12.0); Neutrophils # (auto) 11.3 uL; Neutrophils % (auto) 88.4 % (37.0-80.0); Platelet Count (auto) 332 10^3/uL (140-450); Red Blood Cells 3.05 10^6/uL (4.0-5.20); Red Cell Distribution Width 15.6 % (11.8-14.3); White Blood Cell 12.7 10^3/uL (4.4-10.8)
[2017-11-29 09:00] VITALS: BP 132/86
[2017-11-29] MEDS: CHLORHEXIDINE 0.12% ORAL rinse 473ML MT SCH ×2 (10:00→21:39)
[2017-11-29] MEDS: ASPirin 81 mg TAB PO SCH (10:56)
[2017-11-29] MEDS: PANTOPRAZOLE 40 MG TAB PO SCH (10:56)
[2017-11-29] MEDS: FLORASTOR (S. BOULARDII) 250 MG CAP PO SCH (10:56)
[2017-11-29] MEDS: SOTALOL HCL 80 MG TAB PO SCH ×2 (10:57→21:41)
[2017-11-29] MEDS: ENOXAPARIN SOD 40 MG/0.4 ML SYRINGE SC SCH (10:58)
[2017-11-29 13:00] VITALS: BP 147/83
[2017-11-29] MEDS ORDERED: SODIUM CHLORIDE 0.9 % NEB SOLN 3ML NEB ONE (14:49)
[2017-11-29 17:23] VITALS: BP 133/75
[2017-11-29] MEDS: LORazepam 2MG/ML-1ML VIAL IV PRN (19:47)
[2017-11-29] MEDS: ZOLPIDEM TARTRATE 5 MG TAB PO PRN (21:39)
[2017-11-29 22:03] VITALS: BP 133/75
[2017-11-30] MEDS: traMADol HCL 50 MG TAB PO PRN ×4 (01:05→15:55)
[2017-11-30] MEDS: HYDROcodone-ACET 5/325MG TAB PO PRN ×5 (02:10→22:09)
[2017-11-30 04:43] VITALS: BP 137/75
[2017-11-30] MEDS: guaiFENesin 200 MG/10 ML UD PO SCH ×4 (05:48→18:00)
[2017-11-30] MEDS: BOOST 8 ounces PO SCH ×4 (05:48→22:04)
[2017-11-30] MEDS: NAFCILLIN SOD 2GM 6 GM in SODIUM CHL 0.9% 500 ML IV SCH ×2 (05:48→17:59)
[2017-11-30] MEDS: IPRATROPIUM BROM 0.5 MG/2.5ML INH SOL NEB PRN ×4 (06:56→23:58)
[2017-11-30] MEDS: ALBUTEROL SULF 2.5 MG/0.5ML(0.5%) NEB SOLN NEB PRN ×4 (06:56→23:58)
[2017-11-30 08:00] VITALS: BP 150/80
[2017-11-30] MEDS: SOTALOL HCL 80 MG TAB PO SCH ×2 (10:30→22:04)
[2017-11-30] MEDS: PANTOPRAZOLE 40 MG TAB PO SCH (10:30)
[2017-11-30] MEDS: FLORASTOR (S. BOULARDII) 250 MG CAP PO SCH (10:30)
[2017-11-30] MEDS: ASPirin 81 mg TAB PO SCH (10:30)
[2017-11-30] MEDS: CHLORHEXIDINE 0.12% ORAL rinse 473ML MT SCH ×2 (10:31→22:04)
[2017-11-30] MEDS: ENOXAPARIN SOD 40 MG/0.4 ML SYRINGE SC SCH (10:31)
[2017-11-30] MEDS ORDERED: ONDANSETRON HCL 4 MG/2 ML VIAL IV PRN (11:30)
[2017-11-30] MEDS ORDERED: ACETAMINOPHEN 500 MG TAB PO PRN (11:30)
[2017-11-30 12:00] VITALS: BP 126/80
[2017-11-30] MEDS ORDERED: ACETYLCYSTEINE 10 %(100MG/ML) SOL 4ML NEB ONE (14:30)
[2017-11-30 17:00] VITALS: BP 137/74
[2017-11-30] MEDS: ACETYLCYSTEINE 10 %(100MG/ML) SOL 4ML NEB SCH ×2 (17:47→23:58)
[2017-11-30 20:00] VITALS: BP 142/75
[2017-11-30] MEDS: ZOLPIDEM TARTRATE 5 MG TAB PO PRN (20:26)
[2017-11-30 22:00] VITALS: BP 142/75
[2017-12-01] MEDS: traMADol HCL 50 MG TAB PO PRN ×3 (00:09→18:18)
[2017-12-01] MEDS: guaiFENesin 200 MG/10 ML UD PO SCH ×4 (00:28→18:00)
[2017-12-01] MEDS: HYDROcodone-ACET 5/325MG TAB PO PRN ×3 (04:03→15:49)
[2017-12-01 05:00] VITALS: BP 149/86
[2017-12-01] MEDS: ALBUTEROL SULF 2.5 MG/0.5ML(0.5%) NEB SOLN NEB PRN ×3 (06:16→19:18)
[2017-12-01] MEDS: IPRATROPIUM BROM 0.5 MG/2.5ML INH SOL NEB PRN ×3 (06:16→19:18)
[2017-12-01] MEDS: ACETYLCYSTEINE 10 %(100MG/ML) SOL 4ML NEB SCH ×3 (06:17→19:19)
[2017-12-01] MEDS: BOOST 8 ounces PO SCH ×3 (06:49→18:00)
[2017-12-01] MEDS: NAFCILLIN SOD 2GM 6 GM in SODIUM CHL 0.9% 500 ML IV SCH ×2 (06:50→17:29)
[2017-12-01 07:46] VITALS: BP 150/82
[2017-12-01] MEDS: PANTOPRAZOLE 40 MG TAB PO SCH (09:46)
[2017-12-01] MEDS: FLORASTOR (S. BOULARDII) 250 MG CAP PO SCH (09:46)
[2017-12-01] MEDS: ENOXAPARIN SOD 40 MG/0.4 ML SYRINGE SC SCH (09:47)
[2017-12-01] MEDS: CHLORHEXIDINE 0.12% ORAL rinse 473ML MT SCH (09:47)
[2017-12-01] MEDS: ASPirin 81 mg TAB PO SCH (09:47)
[2017-12-01] MEDS: SOTALOL HCL 80 MG TAB PO SCH (09:47)
[2017-12-01 12:00] VITALS: BP 144/81
[2017-12-01 16:46] VITALS: BP 140/74
[2017-12-01 20:00] VITALS: BP 160/88
[2017-12-01 21:18] VITALS: BP 160/88
== END 2017-12-01 21:18 | DRG 871 ==
LOC: ER 15:42 → EDBD 15:42 → TELE 15:43 → DOU IN ICU 11-19 03:34 → EAST 11-20 12:52 → TELE-EAST 11-20 22:11 → EAST 12-01 10:29
PROVIDERS: ADMIT Nurse Practitioner Family; ATTEND Internal Medicine
PROC: 5A09357 Assistance with Respiratory Ventilation, Less than 24 Consecutive Hours, Continuous Positive Airway Pressure (ICD-10-PCS; principal; 2017-11-23)
PROC: 0B9B8ZZ Drainage of Left Lower Lobe Bronchus, Via Natural or Artificial Opening Endoscopic (ICD-10-PCS; 2017-11-25)
DX: A41.9 Sepsis, unspecified organism (principal); J96.00 Acute respiratory failure, unspecified whether with hypoxia or hypercapnia; E43 Unspecified severe protein-calorie malnutrition; J15.212 Pneumonia due to Methicillin resistant Staphylococcus aureus; I11.9 Hypertensive heart disease without heart failure; I48.91 Unspecified atrial fibrillation; J90 Pleural effusion, not elsewhere classified; I48.92 Unspecified atrial flutter; Z68.1 Body mass index [BMI] 19.9 or less, adult; R91.8 Other nonspecific abnormal finding of lung field; F41.9 Anxiety disorder, unspecified; M19.90 Unspecified osteoarthritis, unspecified site; G89.4 Chronic pain syndrome; K12.1 Other forms of stomatitis; K59.00 Constipation, unspecified; Z80.7 Family history of other malignant neoplasms of lymphoid, hematopoietic and related tissues; Z83.3 Family history of diabetes mellitus; Z86.718 Personal history of other venous thrombosis and embolism; Z79.899 Other long term (current) drug therapy; Z90.49 Acquired absence of other specified parts of digestive tract
CPT/HCPCS: 31622; 32555; 36415; 36600; 51702; 71045; 71250; 71260; 74176; 76604; 76942; 80048; 80053; 80061; 80202; 81001; 82040; 82550; 82607; 82746; 82805; 82962; 83605; 83735; 83880; 83986; 84100; 84443; 84478; 84484; 85007; 85025; 85027; 85610; 85730; 87040; 87070; 87077; 87081; 87086; 87186; 87205; 87493; 89051; 93005; 93306; 93312; 94640; 94660; 96361; 96365; 96375; 97110; 97116; 97163; 97530; J0171; J0461; J1815; J2250; J2405; J2543; J7060; J7131

== ENCOUNTER 2019-12-20 20:45 | Emergency (ER) | payer MEDICARE, OTHER ==
[~2019-12-20] VITALS: Ht 170.2 cm; Wt 45.4 kg
[~2019-12-20 20:45] MED LIST: ESTR1TAB3 IM; HYDR-4833 PO; TRAM50TA2 PO
[2019-12-20] MEDS ORDERED: HYDROmorphone HCL 2 MG/ML VL IV ONE (22:00)
[2019-12-20 22:34] LABS: Basophils # (auto) 0 uL; Basophils % (auto) 0.4 % (0.0-2.0); Eosinophils # (auto) 0 uL; Lymphocytes # (auto) 1.2 uL; Mean Corpuscular Hgb Conc. 36.5 g/dL (32.0-36.0)
[2019-12-20 22:36] LABS: Eosinophils % (auto) 0.1 % (0.0-7.0); Hematocrit 33.4 % (36.0-46.0); Hemoglobin 12.2 g/dL (12.2-16.2); Lymphocytes % (auto) 13.3 % (10.0-50.0); Mean Corpuscular Hemoglobin 35.8 pg (28.0-32.0); Mean Corpuscular Volume 98.2 fL (80.0-100.0); Monocytes # (auto) 0.9 uL; Monocytes % (auto) 9.6 % (0.0-12.0); Neutrophils % (auto) 76.6 % (37.0-80.0); Nucleated Red Blood Cells % 0.1 %; Platelet Count (auto) 337 10^3/uL (140-450); Red Cell Distribution Width 13.5 % (11.8-14.3); White Blood Cell 9.2 10^3/uL (4.4-10.8)
[2019-12-20 22:51] LABS: Alanine Aminotransferase 14 U/L (13-56); Albumin 4.1 g/dL (3.4-5.0); Anion Gap 14 (5-15); Aspartate Aminotransferase 16 U/L (15-37); BUN/Creatinine Ratio 22.1; Blood Urea Nitrogen 19 mg/dL (7-18); Calcium 9.2 mg/dL (8.5-10.1); Carbon Dioxide 23 mmol/L (21-32); Chloride 83 mmol/L (98-107); GFR African American 83 mL/min; GFR Non-African American 69 mL/min; Glucose 73 mg/dL (74-106); Magnesium 1.9 mg/dL (1.6-2.6); Potassium 4.3 mmol/L (3.5-5.1); Sodium 120 mmol/L (136-145)
[2019-12-20 22:54] LABS: Urine Bacteria NONE SEEN /hpf (None Seen); Urine Blood Negative /uL (Negative); Urine WBC 5 /hpf (0 - 5)
[2019-12-20 22:56] LABS: Alkaline Phosphatase 79 U/L (45-117); Bilirubin, Total 1.1 mg/dL (0.2-1.0)
[2019-12-20] MEDS ORDERED: IOHEXOL 350 MG/ML 100ML IJ ONE (23:36)
[2019-12-21 01:00] VITALS: BP 142/77
== END 2019-12-21 01:00 | disposition home or self-care (01) ==
LOC: EDBD 20:45 → ER 20:49
DX: G89.29 Other chronic pain (principal); M54.5 Low back pain; M19.90 Unspecified osteoarthritis, unspecified site
CPT/HCPCS: 36415; 71045; 71275; 80053; 81001; 83735; 83880; 84443; 84484; 85025; 85379; 96374; 99284; J1170; Q9967